=== PATIENT | male | born 1970 | race Caucasian/White ===

== ENCOUNTER 2020-07-22 02:35 | Outpatient (CLI) | payer OTHER, SELFPAY ==
[2020-07-22 18:24] LABS: SARS-CoV-2 RNA PCR Negative
== END 2020-07-22 02:36 | disposition home or self-care (01) ==
LOC: ANHCOVIDDT 02:35
PROVIDERS: PCP Internal Medicine; Visit Provider Internal Medicine Gastroenterology
DX: Z01.812 Encounter for preprocedural laboratory examination (principal); Z20.828 Contact with and (suspected) exposure to other viral communicable diseases
CPT/HCPCS: 87635; C9803; U0003

== ENCOUNTER 2020-07-24 00:39 | Day surgery (SDC) | payer OTHER, SELFPAY ==
[2020-07-16 14:12] VITALS: BMI 39.0
--- NOTE | 2020-07-23 14:15 | WPDANESEPP ---
Anes - Eval Pre Procedure Procedure: Operation Date: 07/24/20 07:30 Proposed Procedures p Screening Colonoscopy - Bandar Cassidy MD Date/Time: 07/23/20 14:15 Pre Op Diagnosis: Neoplasm Screening Patient Data Age: 49 Gender: M Height: 1.8 m Weight: 127 kg Allergies Allergy/AdvReac Type Severity Reaction Status Date / Time niacin AdvReac Intermediate Itching Verified 07/16/20 14:09 Home Medications Medication Instructions Recorded Confirmed Type aspirin 81 mg tablet,delayed 81 mg PO DAILY 11/08/19 07/16/20 History release calcium carbonat and lactate 200 2 tablet PO DAILY 11/08/19 07/16/20 History mg calcium-vitamin D3 250 unit tablet omega-3 fatty acids 1,000 mg 4,000 mg PO BID 11/08/19 07/16/20 History capsule rosuvastatin 20 mg tablet 20 mg PO DAILY 11/08/19 07/16/20 History empagliflozin 10 mg-metformin ER 1 tablet PO DAILY #90 each 03/09/20 07/16/20 Rx 1,000 mg tablet,extended release 24hr cetirizine [Zyrtec] 10 mg PO DAILY 07/16/20 07/16/20 History Patient hx anesthesia problems: none Family hx anesthesia problems: none PMFSH Past Medical History Medical History Adverse reaction to niacin Benign essential hypertension Body mass index (BMI) 40.0-44.9, adult Encounter for routine adult health examination without abnormal findings Encounter for special screening examination for neoplasm of prostate Hyperlipidemia On nursing home drug therapy LARRY on CPAP Pre-diabetes Vitamin D deficiency Family History Family History (Updated 05/30/19 @ 17:34 by DOCTOR UNKNOWN) Other Colon polyp Hypertension Social History Social History Smoking status: Never smoker Alcohol intake: current Gender identity (if verbalized by the patient): Male Spiritual care concerns: No Exam Day of Procedure 07/23/20 14:15
[2020-07-24 06:27] VITALS: BP 142/87; PULSE 98; RESP 18; TEMP 36.6; O2SAT 100
[2020-07-24] MEDS: LACTATED RINGERS 1,000 ML 150 ML IV CONT (06:43)
[2020-07-24 06:44] LABS: Glucose Point of Care 122 (65-105)
--- NOTE | 2020-07-24 07:15 | WPDANESEPPF ---
Anes - Initial Pre Proc Eval Procedure: Operation Date: 07/24/20 07:30 Proposed Procedures p Screening Colonoscopy - Bandar Cassidy MD Date/Time: 07/24/20 07:15 Surgeon: Bandar Cassidy MD Pre Op Diagnosis: Neoplasm Screening Patient Data Age: 49 Gender: M Height: 5 ft 11 in Weight: 127 kg Last Vital Signs Temp 97.9 F 07/24/20 06:27 Pulse 98 07/24/20 06:27 Resp 18 07/24/20 06:27 BP 142/87 H 07/24/20 06:27 Pulse Ox 100 07/24/20 06:27 Allergies Allergy/AdvReac Type Severity Reaction Status Date / Time niacin AdvReac Intermediate Itching Verified 07/24/20 06:24 Home Medications Medication Instructions Recorded Confirmed Type aspirin 81 mg tablet,delayed 81 mg PO DAILY 11/08/19 07/24/20 History release calcium carbonat and lactate 200 2 tablet PO DAILY 11/08/19 07/24/20 History mg calcium-vitamin D3 250 unit tablet omega-3 fatty acids 1,000 mg 4,000 mg PO BID 11/08/19 07/24/20 History capsule rosuvastatin 20 mg tablet 20 mg PO DAILY 11/08/19 07/24/20 History empagliflozin 10 mg-metformin ER 1 tablet PO DAILY #90 each 03/09/20 07/24/20 Rx 1,000 mg tablet,extended release 24hr cetirizine [Zyrtec] 10 mg PO DAILY 07/16/20 07/24/20 History Laboratory Tests 07/24/20 06:40 POC Capillary Glucose 122 mg/dl H mg/dl (65-105) Patient hx anesthesia problems: none Family hx anesthesia problems: none PMFSH Past Medical History Medical History Adverse reaction to niacin Benign essential hypertension Body mass index (BMI) 40.0-44.9, adult Encounter for routine adult health examination without abnormal findings Encounter for special screening examination for neoplasm of prostate Hyperlipidemia 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 LARRY on CPAP Pre-diabetes Vitamin D deficiency Family History Family History (Updated 05/30/19 @ 17:34 by DOCTOR UNKNOWN) Other Colon polyp Hypertension Social History Social History (Reviewed 03/09/20 @ 07:38 by Aileen Coffman [facility]) Smoking status: Never smoker Alcohol intake: current Alcohol use details: socially, 12 drinks per year Living arrangements: with family Gender identity (if verbalized by the patient): Male Spiritual care concerns: No Anes - Eval Final PreProcedure Day of Procedure 07/24/20 07:15 Patient weight: morbidly obese Heart: regular rate and rhythm Lungs: clear to auscultation Airway: Mallampati scale class II Neurological: alert and oriented Last oral intake: >/= 8 hours ASA classification: III Emergent: no Anesthetic plan: proceed Anesthesia type and monitoring: general GIVS and standard monitoring Informed Consent: The patient's anesthetic plan and its attendant risks and benefits were discussed with the patient/family/POA. Questions were solicited and answers provided to the satisfaction of the patient/family/POA.
--- NOTE | 2020-07-24 07:34 | P.CONGI_ITS ---
Assessment and Plan Assessment and plan (1) Family history of colonic polyps: Code(s): Z83.71 - Family history of colonic polyps Status: Acute Assessment and Plan: patient presents for screening colonoscopy because of his age and also because of family history of colon polyps in his father. Colonoscopy report follow separately. GI Consult Note Consult date/time: 07/24/20 07:34 HPI: Umesh Kulkarni is a 49 year old male seen in evaluation at the request of Dr Panda Castro.Patient presents for neoplasia screening colonoscopy. Patient's current weight appetite bowel movements are normal. He denies abdominal pain. He has had no discomfort. His bowel habits are regular. His weight is stable. In the past he has had a small amount of bright red blood per rectum attributed to hemorrhoids. 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 LARRY on CPAP Pre-diabetes Vitamin D deficiency Family History Family History (Updated 05/30/19 @ 17:34 by DOCTOR UNKNOWN) Other Colon polyp Hypertension Social History Social History Smoking status: Never smoker Alcohol intake: current Alcohol use details: socially, 12 drinks per year Living arrangements: with family Gender identity (if verbalized by the patient): Male Spiritual care concerns: No Meds Home Medications and Allergies Home Medications Medication Instructions Recorded Confirmed Type aspirin 81 mg tablet,delayed 81 mg PO DAILY 11/08/19 07/24/20 History release calcium carbonat and lactate 200 2 tablet PO DAILY 11/08/19 07/24/20 History mg calcium-vitamin D3 250 unit tablet omega-3 fatty acids 1,000 mg 4,000 mg PO BID 11/08/19 07/24/20 History capsule rosuvastatin 20 mg tablet 20 mg PO DAILY 11/08/19 07/24/20 History empagliflozin 10 mg-metformin ER 1 tablet PO DAILY #90 each 03/09/20 07/24/20 Rx 1,000 mg tablet,extended release 24hr cetirizine [Zyrtec] 10 mg PO DAILY 07/16/20 07/24/20 History Allergies Allergy/AdvReac Type Severity Reaction Status Date / Time niacin AdvReac Intermediate Itching Verified 07/24/20 06:24 Vital Signs Vital Signs - 24 hr 07/24/20 06:27 Temperature 97.9 F Pulse Rate 98 Respiratory Rate 18 Blood Pressure 142/87 H Pulse Oximetry 100 Exam Narrative: Exam Narrative: physical exam reveals patient to be alert. Vital signs stable. HEENT exam unremarkable. Lungs are clear to auscultation and percussion. Heart is without murmur or extra sounds. Abdominal exam bowel sounds are present soft nontender with no organomegaly. Digital external rectal exam normal.
[2020-07-24 07:58] VITALS: BP 129/79; PULSE 84; RESP 18; O2SAT 97
[2020-07-24 08:08] VITALS: BP 127/76; PULSE 79; RESP 18; O2SAT 98
[2020-07-24 08:18] VITALS: BP 135/77; PULSE 76; RESP 18; O2SAT 98
== END 2020-07-24 08:44 | disposition home or self-care (01) ==
PROVIDERS: PCP Internal Medicine; Visit Provider Internal Medicine Gastroenterology
PROC: 0DJD8ZZ Inspection of Lower Intestinal Tract, Via Natural or Artificial Opening Endoscopic (ICD-10-PCS; CPT 45378; principal; 2020-07-24 07:30)
DX: Z12.11 Encounter for screening for malignant neoplasm of colon (principal); D12.5 Benign neoplasm of sigmoid colon; K63.5 Polyp of colon; K57.30 Diverticulosis of large intestine without perforation or abscess without bleeding; Z83.71 Family history of colonic polyps; I10 Essential (primary) hypertension; E78.5 Hyperlipidemia, unspecified; R73.03 Prediabetes; G47.33 Obstructive sleep apnea (adult) (pediatric); E55.9 Vitamin D deficiency, unspecified; E66.9 Obesity, unspecified; Z68.39 Body mass index [BMI] 39.0-39.9, adult
CPT/HCPCS: 45385; 88305; J2704; J7120

== ENCOUNTER 2020-07-27 22:02 | Observation (INO) | payer OTHER, SELFPAY ==
[2020-07-27 22:08] VITALS: BP 127/70; PULSE 84; RESP 19; TEMP 36.6; O2SAT 100
[2020-07-27 22:12] VITALS: PULSE 84
--- NOTE | 2020-07-27 22:39 | ED.SYNCOPE ---
HPI - Syncope General Chief Complaint: Syncope Stated Complaint: BLOODY STOOLS, SYNCOPE Time Seen by Provider: 07/27/20 22:04 History of Present Illness HPI narrative: Patient is a 49-year-old male who presents the ER status post syncope. Patient had a colonoscopy 3 days ago. He had several polyps removed by Dr. Cassidy. Patient had not had a bowel movement all weekend. Today he started having bloody bowel movements several bright red. He spoke with Dr. Cassidy who said to keep an eye on it. Patient is on no blood thinners outside of the baby aspirin which she did not take today. Patient had 6 bloody stools today. The last when he felt hot and flushed and he lost consciousness. No chest pain or shortness of breath. Had not been having positional dizziness. Related Data Home Medications Medication Instructions Recorded Confirmed aspirin 81 mg tablet,delayed 81 mg PO DAILY 11/08/19 07/28/20 release calcium carbonat and lactate 200 2 tablet PO DAILY 11/08/19 07/28/20 mg calcium-vitamin D3 250 unit tablet omega-3 fatty acids 1,000 mg 4,000 mg PO BID 11/08/19 07/28/20 capsule rosuvastatin 20 mg tablet 20 mg PO DAILY 11/08/19 07/28/20 cetirizine [Zyrtec] 10 mg PO DAILY 07/16/20 07/28/20 Allergies Allergy/AdvReac Type Severity Reaction Status Date / Time niacin AdvReac Intermediate Itching Verified 07/24/20 06:24 Review of Systems Review of Systems: All systems reviewed & are unremarkable except as noted in HPI and below Constitutional: Constitutional: Denies chills, Denies fever(s) and Denies weakness ENT: Denies nasal congestion and Denies sore throat Cardiovascular: Cardiovascular: Denies chest pain and Denies radiating jaw, neck or arm pain Gastrointestinal: Gastrointestinal: Denies abdominal pain, Denies nausea and Denies vomiting Comments: Hematochezia Neurologic: Reports syncope, Denies focal weakness and Denies numbness PMFSH Past Medical History Medical History (Updated 07/28/20 @ 06:46 by Mario Lam MD) Adverse reaction to niacin Benign essential hypertension Body mass index (BMI) 40.0-44.9, adult Encounter for routine adult health examination without abnormal findings Encounter for special screening examination for neoplasm of prostate Hyperlipidemia On senior living drug therapy LARRY on CPAP Pre-diabetes Vitamin D deficiency Surgical History Surgical History (Updated 07/27/20 @ 22:41 by Mario Lam MD) History of colonoscopy Family History Family History (Updated 07/28/20 @ 02:35 by Michelle Fuentes RN) Father Hypertension Father Colon polyp Father Acute myocardial infarction Social History Social History Smoking status: Never smoker Alcohol intake: current Drinks per week: 1 Substance use: never Substance use type: does not use Gender identity (if verbalized by the patient): Male Sexual Orientation (if Verbalized by the Patient): Straight or Heterosexual Spiritual care concerns: No Exam Narrative: Exam Narrative: GENERAL: Well-appearing, well-nourished, and in no acute distress. HEAD: Normocephalic, atraumatic. CHEST: Clear to auscultation. No respiratory distress. HEART: Regular rate and rhythm. Normal peripheral pulses. ABDOMEN: Soft, nontender, nondistended, gross blood on rectal exam. EXTREMITIES: Normal range of motion. No edema. SKIN: Warm, dry, no rash. NEURO: Alert and oriented x3. PSYCH: Normal mood and affect. Course Course Emergency Course: Admit to hospitalist service. GI consulted. Every 6 hours H&H's. We will continue to hydrate. Clear liquid fluids recommended early in case patient needs additional procedure. Vital Signs Vital signs: Vital Signs Temperature 97.9 F 07/27/20 22:08 Pulse Rate 84 07/27/20 22:08 Respiratory Rate 19 07/27/20 22:08 Blood Pressure 127/70 07/27/20 22:08 Pulse Oximetry 100 07/27/20 22:08 Temperature 97.1
[2020-07-27 22:41] LABS: Basophils Absolute Auto 0.1 K/mm3 (0.0-0.1); Basophils Percent Auto 0.6 % (0.2-1.2); Eosinophils Percent Auto 0.5 % (0-4.4); Hematocrit 33.7 % (42.0-52.0); Hemoglobin 11.2 g/dL (14.0-18.0); Immature Granulocyte Absolute 0.03 K/mm3 (0.00-0.031); Immature Granulocyte Percent A 0.4 % (0-0.5); Lymphocytes Absolute Auto 2.69 K/mm3 (0.9-3.2); Lymphocytes Percent Auto 31.8 % (18.3-44.2); Mean Corpuscular HGB Conc 33.2 g/dl (32-36); Mean Corpuscular Hemoglobin 29.9 pg (26-34); Mean Corpuscular Volume 89.9 fl (80-100); Mean Platelet Volume 10.6 fl (7.4-10.4); Monocytes Absolute Auto 0.5 K/mm3 (0.1-0.6); Neutrophils Absolute Auto 5.2 K/mm3 (1.3-6.7); Neutrophils Percent Auto 60.7 % (45.5-73.1); Platelet Count Result 234 k/mm3 (150-375); Red Blood Count 3.75 M/mm3 (4.6-6.20); Red Cell Distribution Width 12.7 % (11.5-14.5); White Blood Count 8.5 K/mm3 (4.5-10.0)
[2020-07-27 22:46] LABS: INR 1.1; Prothrombin Time 13.5 Seconds (11.1-14.7)
[2020-07-27 22:47] LABS: Partial Thromboplastin Time 21.9 SECONDS (22.3-36.8)
[2020-07-27] MEDS: SODIUM CHLORIDE 0.9% IV 1,000 ML 999 ML IV CONT (22:47)
[2020-07-27 22:49] LABS: Anion Gap 8 mmol/L (8-16); Blood Urea Nitrogen 22 mg/dL (9-20); Calcium 8.6 mg/dL (8.4-10.2); Carbon Dioxide 29 mmol/L (22-30); Chloride 102 mmol/L (98-107); Estimated CRCL calculation 93 ml/min; Estimated Glomerular Filt Rate > 60; Glucose 211 mg/dL (75-110); Potassium 3.8 mmol/L (3.4-5.0); Sodium 139 mmol/L (137-145)
[2020-07-27 22:55] VITALS: O2SAT 99
[2020-07-27 23:28] VITALS: BP 106/56; PULSE 90; RESP 19; O2SAT 99
[2020-07-28] VITALS (17 sets, daily range): BP systolic 100–143; BP diastolic 45–98; PULSE 66–92; RESP 16–22; TEMP 36.2–36.7; O2SAT 96–100; BMI 30.4
--- NOTE | 2020-07-28 | ECHO_ITS ---
Patient Info Name: Umesh Kulkarni Age: 49 years : 1970 Gender: Male Ht: 71 in Wt: 218 lbs BSA: 2.25 m2 HR: 68 bpm BP: 110 / 49 mmHg Heart Rhythm: Sinus Rhythm Technical Quality: Good Exam Date: 07/28/2020 1:46 PM Exam Location: [facility] Patient Status: Outpatient Admit Date: 07/28/2020 Staff Ordering Physician: Melani Hansen PA-C Phys Therapist: Manpreet Rowley, LUCY, RT Attending Provider: Melani Hansen PA-C Exam Type: CA echo dop color flow w con Study Info Complete two-dimensional, color flow and Doppler transthoracic echocardiogram is performed. Summary 1. Complete two-dimensional, color flow and Doppler transthoracic echocardiogram is performed. 2. Left ventricular chamber size, , systolic and diastolic function are normal with no regional wall motion abnormalities with an estimated ejection fraction of 60-65%. Borderline concentric LVH. 3. Left atrial chamber dimension is mildly enlarged. 4. No significant valve disease. 5. Somewhat tele difficult study, definity echo contrast used. 6. Normal sinus rhythm. Left Ventricle Left ventricular chamber dimension is normal. Left ventricular systolic function is normal, estimated at 60-65%. There is no increased left ventricular wall thickness. Left ventricular septal wall motion is normal. The left ventricular diastolic function is normal. Left ventricular chamber size, , systolic and diastolic function are normal with no regional wall motion abnormalities with an estimated ejection fraction of 60-65%. Borderline concentric LVH. Right Ventricle Right ventricular chamber dimension is normal. Right ventricular systolic function is normal. Left Atria Left atrial chamber dimension is mildly enlarged. Right Atria Right atrial chamber dimension is normal. Aortic Valve The aortic valve is trileaflet. There is no aortic valve sclerosis. There is no aortic valve stenosis. There is no aortic valve regurgitation. Pulmonic Valve The pulmonic valve is normal. There is no pulmonic valve stenosis. There is no pulmonic regurgitation. Mitral Valve The mitral valve has normal leaflets. There is no mitral valve stenosis. There is trace mitral valve regurgitation. Tricuspid Valve The tricuspid valve leaflets are normal. There is no significant tricuspid valve stenosis. There is trace tricuspid valve regurgitation. No pulmonary hypertension, estimated pulmonary arterial systolic pressure is Empty. Pericardium/Pleural The pericardium appears normal. There is no pericardial effusion. Inferior Vena Cava Normal inferior vena cava with >50% collapse upon inspiration consistent with Empty right atrial pressure, Empty. Aorta The aortic root size at the sinus of Valsalva is normal. The prox ascending aorta size is normal. Ventricles Name Value Normal LV Fractional Shortening/Ejection Fraction 2D/MM LV EF (BP MOD) 52 % 52-72 Report Signatures
--- NOTE | 2020-07-28 02:33 | ADMGEN ---
This patient, Umesh Kulkarni, was admitted to Medical Room 257-. Patient/family oriented to hospital policies and general routines including ID bracelet, bed and alarms, visiting hours, pain management, procedures, bathroom and other care routines, personal items, smoking policy, room service/diet, and visiting hours. Valuables list has been completed. Information on how to activate the Rapid Response Team has been discussed. Patient/Family are encouraged to report perceived risks to care and to ask questions if they do not understand what they are told or what they should do.
[2020-07-28] MEDS: SODIUM CHLORIDE 0.9% IV 1,000 ML 125 ML IV CONT (03:11)
[2020-07-28 05:54] LABS: Hematocrit 29.4 % (42.0-52.0); Hemoglobin 9.8 g/dL (14.0-18.0)
--- NOTE | 2020-07-28 07:01 | WPDGICN ---
Assessment and Plan Assessment and plan (1) Acute GI bleeding: Code(s): K92.2 - Gastrointestinal hemorrhage, unspecified Status: Acute Assessment and Plan: Patient has had acute GI bleeding appears to be post polypectomy bleeding. Having had colonoscopy with colon polyp removal 3-4 days prior to this presentation. Patient admitted with syncopal event. Attributed to the bleeding. Plan is to continue monitor hemoglobin transfuse if necessary. Colonoscopy to assess for risk of continued bleeding hopefully cauterize the site will be planned. (2) History of colon polyps: Code(s): Z86.010 - Personal history of colonic polyps Status: Acute Assessment and Plan: Adenomatous colon polyps identified time endoscopy. Histology benign. Plan is for for ultimate follow-up colonoscopy in 3 years because of size polyp. He also has a family history of colon polyps in his father. (3) Family history of colonic polyps: Code(s): Z83.71 - Family history of colonic polyps Status: Acute GI Consult Note Consult date/time: 07/28/20 07:01 HPI: Umesh Kulkarni is a 49 year old male I am asked to see because of GI bleeding. Patient underwent screening colonoscopy on Monday 4 days ago for screening. Previously it had intermittent rectal bleeding attributed to hemorrhoids. Family history significant his father had colon polyps. At the time of colonoscopy patient had several large colon polyp subsequently identified to be tubular 0 adenomatous colon polyps. Benign histology was confirmed. They were rather large. Yesterday morning began to pass bloody stools. This persisted throughout the day intermittently. Associated with lower abdominal bloating and cramping. Last evening he experienced a syncopal episode. He presented to the emergency room. Hemoglobin was noted did decline to 9.8 by this morning. Patient states bowel movements occurred approximately 4-6 hour intervals. Stools are somewhat darkish in description. Family history is significant patient's father has had colon polyps. [facility] Past Medical History Medical History (Updated 07/28/20 @ 07:04 by Bandar Cassidy MD) Adverse reaction to niacin Benign essential hypertension Body mass index (BMI) 40.0-44.9, adult Encounter for routine adult health examination without abnormal findings Encounter for special screening examination for neoplasm of prostate Hyperlipidemia On shelter drug therapy LARRY on CPAP Pre-diabetes Vitamin D deficiency Surgical History Surgical History (Updated 07/27/20 @ 22:41 by Mario Lam MD) History of colonoscopy Family History Family History (Updated 07/28/20 @ 02:35 by Michelle Fuentes RN) Father Hypertension Father Colon polyp Father Acute myocardial infarction Social History Social History Smoking status: Never smoker Alcohol intake: current Drinks per week: 1 Substance use: never Substance use type: does not use Gender identity (if verbalized by the patient): Male Sexual Orientation (if Verbalized by the Patient): Straight or Heterosexual Spiritual care concerns: No Meds Home Medications and Allergies Home Medications Medication Instructions Recorded Confirmed Type aspirin 81 mg tablet,delayed 81 mg PO DAILY 11/08/19 07/28/20 History release calcium carbonat and lactate 200 2 tablet PO DAILY 11/08/19 07/28/20 History mg calcium-vitamin D3 250 unit tablet omega-3 fatty acids 1,000 mg 4,000 mg PO BID 11/08/19 07/28/20 History capsule rosuvastatin 20 mg tablet 20 mg PO DAILY 11/08/19 07/28/20 History empagliflozin 10 mg-metformin ER 1 tablet PO DAILY #90 each 03/09/20 07/28/20 Rx 1,000 mg tablet,extended release 24hr cetirizine [Zyrtec] 10 mg PO DAILY 07/16/20 07/28/20 History Allergies Allergy/AdvReac Type Severity Reaction Status Date / Time niacin AdvReac Intermediate I
[2020-07-28] MEDS: PEG (High)/E-LYTE SOLN 4,000 ML BTL 3000 ML PO (07:54)
[2020-07-28 08:07] LABS: Glucose Point of Care 116 (65-105)
--- NOTE | 2020-07-28 09:35 | PM.IMHP ---
H&P: HPI History of Present Illness Date/Time: 07/28/20 09:35 Chief complaint: gi bleeding Narrative: Umesh Kulkarni is a 49 year old male with PMH significant for hyperlipidemia and pre-diabetes who presented to the emergency department for the evaluation of GI bleeding and syncopal episode. He had an elective, outpatient screening colonoscopy Monday07/24/[address] Cassidy. Prior to the colonoscopy, he reported infrequent bright red blood per rectum with straining which was attributed to hemorrhoids. Several polyps were removed during the colonoscopy. He did not have any bowel movements over the weekend. Yesterday, he had 7-8 large volume, bloody bowel movements which were burgundy in color. Bowel movements were associated with boating and cramping. Yesterday evening, he reports that he became very flushed and felt hot. He sat at the edge of the bed with the fan on to try to cool off. He then became very nauseous and felt he was going to vomit. He subsequently developed the urge to defecate and went to sit on the toilet. The next thing he remembered was waking up on the floor. His reported that he had a brief loss of consciousness for 2-3 seconds. He did not hit his head. He reports that he has a very small scrape on his upper lip but no other injuries. He denies associated chest pain, dyspnea, and palpitations. He denies lateralizing weakness, speech change, and vision change. He denies prior episodes of syncope. He denies dizziness and lightheadedness. He reports one bowel movement today which was formed with dark blood. He has no other concerns at this time. Initial workup in the emergency department was notable for hemoglobin of 11.2 and hematocrit 33.7. Glucose was 211. Review of Systems Review of Systems: Narrative: Constitutional: Denies fever, chills, fatigue, and appetite change. Eyes: Denies vision change. No additional eye complaints. ENT: Denies change in hearing, nasal congestion, dysphagia, odynophagia, and sore throat. Cardiovascular: Denies palpitations and chest pain. Denies PND and orthopnea. Respiratory: Denies cough and shortness of breath. Gastrointestinal: As above. He denies nausea, vomiting, and hematemesis. He reports associated abdominal cramping with bowel movements but no other abdominal pain. Genitourinary: Denies dysuria, frequency, urgency, and hesitancy. Musculoskeletal: Denies joint pain and swelling. Denies muscle cramps and weakness. Skin: Denies lesions and wounds. Neurologic: Denies focal weakness, paresthesias, confusion, headaches, and speech change. Hematologic: +GI bleeding but no prior hx of significant bleeding or bruising. 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 Kulkarni lives at home with his . He has two daughters. He is employed in the [employer] for [employer]. He reports infrequent social alcohol use and denies tobacco and illicit substance use. He wishes to be a full code and he has designated his , Ashely Kulkarni, as his surrogate decision maker. Smoking status: Never smoker Alcohol intake: cu
[2020-07-28 09:41] LABS: Hematocrit 29.9 % (42.0-52.0); Hemoglobin 10.1 g/dL (14.0-18.0)
--- NOTE | 2020-07-28 11:00 | PC.NURSE ---
To GI lab via wheelchair with GI lab staff. Report given to Sabrina GONG. Consent on front of chart.
[2020-07-28] MEDS: LACTATED RINGERS 1,000 ML 150 ML IV CONT (11:07)
[2020-07-28 11:11] LABS: Glucose Point of Care 118 (65-105)
--- NOTE | 2020-07-28 11:32 | WPDANESEPPF ---
Anes - Initial Pre Proc Eval Procedure: Operation Date: 07/28/20 11:30 Proposed Procedures p Colonoscopy - Bandar Cassidy MD Date/Time: 07/28/20 11:32 Surgeon: Melani Hansen PA-C Pre Op Diagnosis: gi bleeding Patient Data Age: 49 Gender: M Height: 5 ft 11 in Weight: 98.9 kg Last Vital Signs Temp 98.1 F 07/28/20 11:14 Pulse 91 07/28/20 11:14 Resp 18 07/28/20 11:14 BP 126/98 H 07/28/20 11:14 Pulse Ox 100 07/28/20 11:14 Allergies Allergy/AdvReac Type Severity Reaction Status Date / Time niacin AdvReac Intermediate Itching Verified 07/24/20 06:24 Home Medications Medication Instructions Recorded Confirmed Type aspirin 81 mg tablet,delayed 81 mg PO DAILY 11/08/19 07/28/20 History release calcium carbonat and lactate 200 2 tablet PO DAILY 11/08/19 07/28/20 History mg calcium-vitamin D3 250 unit tablet omega-3 fatty acids 1,000 mg 4,000 mg PO BID 11/08/19 07/28/20 History capsule rosuvastatin 20 mg tablet 20 mg PO DAILY 11/08/19 07/28/20 History empagliflozin 10 mg-metformin ER 1 tablet PO DAILY #90 each 03/09/20 07/28/20 Rx 1,000 mg tablet,extended release 24hr cetirizine [Zyrtec] 10 mg PO DAILY 07/16/20 07/28/20 History Laboratory Tests 07/27/20 07/27/20 07/27/20 22:31 22:31 22:31 WBC 8.5 K/mm3 K/mm3 (4.5-10.0) RBC 3.75 M/mm3 L M/mm3 (4.6-6.20) Hgb 11.2 g/dL L g/dL (14.0-18.0) Hct 33.7 % L % (42.0-52.0) MCV 89.9 fl fl (80-100) MCH 29.9 pg pg (26-34) MCHC 33.2 g/dl g/dl (32-36) RDW 12.7 % % (11.5-14.5) Plt Count 234 k/mm3 k/mm3 (150-375) MPV 10.6 fl H fl (7.4-10.4) Immature Gran % (Auto) 0.4 % % (0-0.5) Neut % (Auto) 60.7 % % (45.5-73.1) Lymph % (Auto) 31.8 % % (18.3-44.2) [place] % (Auto) 6.0 % % (2.6-8.5) Eos % (Auto) 0.5 % % (0-4.4) Baso % (Auto) 0.6 % % (0.2-1.2) Lymph # (Auto) 2.69 K/mm3 K/mm3 (0.9-3.2) [place] # (Auto) 0.5 K/mm3 K/mm3 (0.1-0.6) Eos # (Auto) 0.0 K/mm3 K/mm3 (0-0.3) Baso # (Auto) 0.1 K/mm3 K/mm3 (0.0-0.1) Abs Immat Gran (auto) 0.03 K/mm3 K/mm3 (0.00-0.031) Absolute Neuts (auto) 5.2 K/mm3 K/mm3 (1.3-6.7) Absolute Nucleated RBC 0.0 K/mm3 K/mm3 (0.0-0.012) Nucleated RBC % 0.0 % % (0.0-0.2) PT 13.5 Seconds Seconds (11.1-14.7) INR 1.1 APTT 21.9 SECONDS L SECONDS (22.3-36.8) Sodium 139 mmol/L mmol/L (137-145) Potassium 3.8 mmol/L mmol/L (3.4-5.0) Chloride 102 mmol/L mmol/L (98-107) Carbon Dioxide 29 mmol/L mmol/L (22-30) Anion Gap 8 mmol/L mmol/L (8-16) BUN 22 mg/dL H mg/dL (9-20) Creatinine 1.00 mg/dL mg/dL (0.7-1.3) Estim Creat Clear Calc 93 ml/min ml/min Estimated GFR > 60 (59 - ) Glucose 211 mg/dL H mg/dL (75-110) POC Capillary Glucose Calcium 8.6 mg/dL mg/dL (8.4-10.2) Blood Type Antibody Screen 07/27/20 07/28/20 07/28/20 22:31 05:14 08:05 WBC RBC Hgb 9.8 g/dL L g/dL (14.0-18.0) Hct 29.4 % L % (42.0-52.0) MCV MCH MCHC RDW Plt Count MPV Immature Gran % (Auto) Neut % (Auto) Lymph % (Auto) [place] % (Auto) Eos % (Auto) Baso % (Auto) Lymph # (Auto) [place] # (Auto) Eos # (Auto) Baso # (Auto) Abs Immat Gran (auto) Absolute Neuts (auto) Absolute Nucleated RBC Nucleated RBC % PT INR APTT Sodium Potassium Chl
[2020-07-28 12:07] LABS: Glucose Point of Care 117 (65-105)
[2020-07-28] MEDS: ROSUVASTATIN 10 MG TABLET 20 MG PO (13:02)
[2020-07-28 13:50] LABS: Glucose Point of Care 105 (65-105)
[2020-07-28] MEDS: PERFLUTREN LIPID MICROSPHERES 1.5 ML VIAL DILUTED TO 10 ML TOTAL VOLUME IV PUSH (15:25)
[2020-07-28 16:26] LABS: Glucose Point of Care 142 (65-105)
[2020-07-28 16:34] LABS: Hematocrit 26.2 % (42.0-52.0); Hemoglobin 8.8 g/dL (14.0-18.0)
[2020-07-28] MEDS: OMEGA 3 POLYUNSAT FATTY ACIDS 1 GM CAP 4 GM PO (17:47)
[2020-07-28 23:19] LABS: Glucose Point of Care 134 (65-105)
[2020-07-29] VITALS (7 sets, daily range): BP systolic 117–132; BP diastolic 61–67; PULSE 69–82; RESP 16–20; TEMP 36.5–37.1; O2SAT 98–100
[2020-07-29 00:18] LABS: Hematocrit 24.8 % (42.0-52.0); Hemoglobin 8.3 g/dL (14.0-18.0)
[2020-07-29 06:31] LABS: Hematocrit 24.6 % (42.0-52.0); Hemoglobin 8.3 g/dL (14.0-18.0)
[2020-07-29 08:04] LABS: Glucose Point of Care 133 (65-105)
--- NOTE | 2020-07-29 08:36 | WPDANESPN ---
Anes - Prog Note Post-Op Date/Time: 07/29/20 08:36 Cardiovascular status: normal Respiratory status: normal Airway patency: baseline Mental status: baseline Post-Op hydration status: normal Vital Signs: Last Vital Signs Temp 37.1 C 07/29/20 05:57 Pulse 72 07/29/20 05:57 Resp 18 07/29/20 05:57 BP 117/65 07/29/20 05:57 Pulse Ox 98 07/29/20 05:57 Pain Score (VAS): 0 I/O: Intake & Output 07/28/20 07/29/20 07/29/20 23:59 07:59 15:59 Intake Total 2240 0 Balance 2240 0 Laboratory Tests 07/29/20 06:22 07/27/20 22:31 07/28/20 07/28/20 07/28/20 09:26 11:09 12:05 Hgb 10.1 L Hct 29.9 L POC Capillary Glucose 118 H 117 H 07/28/20 07/28/20 07/28/20 13:00 16:20 16:27 Hgb 8.8 L Hct 26.2 L POC Capillary Glucose 105 142 H 07/28/20 07/29/20 07/29/20 22:05 00:14 06:22 Hgb 8.3 L 8.3 L Hct 24.8 L 24.6 L POC Capillary Glucose 134 H 07/29/20 08:01 Hgb Hct POC Capillary Glucose 133 H Post-procedural complaints: none Patient Feedback: Patient satisfied with anesthetic care.
[2020-07-29] MEDS: OMEGA 3 POLYUNSAT FATTY ACIDS 1 GM CAP 4 GM PO (08:43)
[2020-07-29] MEDS: ROSUVASTATIN 10 MG TABLET 20 MG PO (08:43)
--- NOTE | 2020-07-29 09:22 | WPDGIPROGNO ---
Progress Note: A&P Additional Plan Patient alert and comfortable this morning. Tolerating diet. No bleeding noted. No abdominal pain. Physical exam reveals patient be alert. Vital signs stable. Abdomen is soft nontender with no organomegaly. Labs reveal hemoglobin 8.3 matter crit 24.6 which is stable. Impression 1. Post polypectomy bleeding. Now status post endoscopy and clipping of polyp site. No additional bleeding noted. Plan is for early discharge with regular diet. 2. Adenomatous colon polyps. Benign histology but these were very large polyps. Plan is for follow-up colonoscopy in 3 years. Plan is for discharge today if other services agree . Subjective Date/time seen: 07/29/20 09:22 Objective Data Vital Signs Vital Signs: Vital Signs - 24 hr 07/28/20 10:00 07/28/20 11:14 07/28/20 11:53 Temperature 98.0 F 98.1 F Pulse Rate 88 91 88 Respiratory Rate 20 18 20 Blood Pressure 143/66 H 126/98 H 100/47 L Pulse Oximetry 99 100 99 07/28/20 12:00 07/28/20 12:03 07/28/20 12:13 Temperature Pulse Rate 66 75 Respiratory Rate 17 22 H Blood Pressure 112/47 L 110/49 L Pulse Oximetry 97 98 07/28/20 14:00 07/28/20 15:47 07/28/20 15:48 Temperature 97.4 F L Pulse Rate 74 Respiratory Rate 20 Blood Pressure 136/69 122/50 L 113/45 L Pulse Oximetry 99 07/28/20 16:00 07/28/20 20:00 07/29/20 00:00 Temperature 97.2 F L Pulse Rate 81 83 72 Respiratory Rate 16 Blood Pressure 141/68 H Pulse Oximetry 100 07/29/20 02:00 07/29/20 04:00 07/29/20 05:57 Temperature 97.7 F 98.7 F Pulse Rate 73 69 72 Respiratory Rate 16 18 Blood Pressure 132/67 117/65 Pulse Oximetry 100 98 07/29/20 08:00 Temperature Pulse Rate 82 Respiratory Rate Blood Pressure Pulse Oximetry Intake/Output Intake/Output: Intake & Output 07/26/20 07/27/20 07/28/20 07/29/20 23:59 23:59 23:59 23:59 Intake Total 1000 2930 0 Balance 1000 2930 0 Meds/Results Medications: Active Medications Generic Name Dose Route Start Last Admin Trade Name Raman PRN Reason Stop Dose Admin Calcium Carbonate 500 mg 07/28/20 09:00 07/29/20 08:43 Os-G[place] 500 +D Tablet PO 08/28/20 09:01 500 mg DAILY NIURKA Administration Dextrose 12.5 gm 07/28/20 07:40 Dextrose 50% Syringe IV PUSH PRN PRN Hypoglycemia Protocol Fish Oil 4 gm 07/28/20 17:00 07/29/20 08:43 Lovaza PO 4 gm BID NIURKA Administration Glucagon 1 mg 07/28/20 07:40 Glucagon For Inj IM PRN PRN Hypoglycemia Protocol Glucose 15 gm 07/28/20 07:40 Glutose 15 PO PRN PRN Hypoglycemia Protocol Dextrose 1,000 mls @ 100 mls/hr 07/28/20 07:40 Dextrose 5% 1,000 Ml IVPB PRN PRN Hypoglycemia Protocol Insulin Aspart 2 - 5 units 07/28/20 08:00 07/29/20 08:42 Novolog SUB-Q Not Given TIDWM NIURKA Protocol Morphine Sulfate 4 mg 07/28/20 00:10 Morphine Sulfate Inj (*Crx) IV PUSH Q2H PRN Pain Rated 7-10 Ondansetron HCl 4 mg 07/28/20 00:10 Zofran Inj IV PUSH Q4H PRN Nausea Rosuvastatin Calcium 20 mg 07/28/20 09:00 07/29/20 08:43 Crestor PO 20 mg DAILY NIURKA Administration Labs Labs: Laboratory Results - last 24 hr 07/28/20 07/28/20 07/28/20 09:26 11:09 12:05 Hgb 10.1 L Hct 29.9 L POC Capillary Glucose 118 H 117 H 07/28/20 07/28/20 07/28/20 13:00 16:20 16:27 Hgb 8.8 L Hct 26.2 L POC Capillary Glucose 105 142 H 07/28/20 07/29/20 07/29/20 22:05 00:14 06:22 Hgb 8.3 L 8.3 L Hct 24.8 L 24.6 L POC Capillary Glucose 134 H 07/29/20 08:01 Hgb Hct POC Capillary Glucose 133 H
--- NOTE | 2020-07-29 10:48 | PM.DS ---
DS: Admitting Diagnosis Admitting Diagnosis Admitting Diagnosis: gi bleeding DS: Discharge Diagnosis Discharge Diagnosis (1) Acute GI bleeding: Code(s): K92.2 - Gastrointestinal hemorrhage, unspecified Status: Acute Assessment and Plan: Discharge Summary (Date of service 07/29/20: Mr. Kulkarni is a 49 year old male with PMH significant for hyperlipidemia and pre-diabetes who presented to the emergency department for the evaluation of GI bleeding and syncopal episode. He had an elective, outpatient screening colonoscopy Monday07/24/[address] Cassidy. He reported 7-8 large volume, bloody bowel movements which were burgundy in color on 07/27. Later that evening, he developed flushing, nausea, and urge to defecate. He sat on the toilet for a bowel movement and reports that he briefly lost consciousness for 2-3 seconds per his . He had no focal deficits or head trauma. Initial workup in the emergency department was notable for hemoglobin of 11.2 and hematocrit 33.7. Glucose was 211. Dr. Cassidy was consulted and he was admitted to the hospitalist service for further management. He underwent colonoscopy 07/30/20 which demonstrated a colonic ulcer with bleeding stigmata in the proximal ascending colon with no active bleeding at the site of polypectomy. Clips were applied to prevent additional bleeding. Internal hemorrhoids, diverticulosis, and rectal ulcer were also present. Bleeding stopped and he had a regular, formed bowel movement the day of discharge without any evidence of melena or hematochezia. He will need repeat colonoscopy in 3 years. Hemoglobin and hematocrit were monitored closely and remained stable. He requested to go home as he felt much better. He was not having any lightheadedness or dizziness. Syncope was felt to be reflex mediated due to acute blood loss and vagal response. He was not orthostatic and echocardiogram was without significant abnormality including no valvular disorder. He was advised to have repeat CBC and follow-up with his primary care doctor. He was advised to avoid all NSAIDs and hold ASA until PCP follow-up. He verbalized understanding with the plan of care. He was discharged in hemodynamically stable condition on the morning of 07/29/20. (2) Acute blood loss anemia: Code(s): D62 - Acute posthemorrhagic anemia Status: Acute Assessment and Plan: Secondary to GI blood loss. Hemoglobin stabilized to 8.3 and hematocrit 24.6. He will need repeat CBC outpatient 07/31 and close follow-up with his PCP. (3) Syncopal episodes: Code(s): R55 - Syncope and collapse Status: Acute Assessment and Plan: Likely reflex syncope given classic prodrome in the setting of volume depletion from diarrhea and blood loss. He has no prior hx of syncope. Orthostatic BP was performed and did not demonstrate orthostatic hypotension. Echocardiogram was performed and demonstrated normal LV chamber size, systolic and diastolic function with no regional wall motion abnormalities and an estimated ejection fraction of 60-65%. Borderline concentric LVH. Mild left atrial atrial chamber enlargement. No significant valve disease. Telemetry was reviewed and demonstrated sinus rhythm without any evidence of arrhythmia. (4) Hyperlipidemia: Qualifiers: Hyperlipidemia type: mixed hyperlipidemia Qualified Code(s): E78.2 - Mixed hyperlipidemia Code(s): E78.5 - Hyperlipidemia, unspecified Status: Chronic Assessment and Plan: Continue rosuvastatin and omega-3 fatty acids. (5) Pre-diabetes: Code(s): R73.03 - Prediabetes Status: Chronic Assessment and Plan: Blood sugars were reviewed and reasonably controlled. Empagliflozin-metformin was held while inpatient and resumed at discharge. (6) Vitamin D deficiency: Code(s): E55.9 - Vitamin D deficiency, unspecified Status: Chronic Assessment and Plan: Calcium-vitamin D3 suppl
== END 2020-07-29 12:30 | disposition home or self-care (01) ==
LOC: ANHED 22:34 → ANH2MED 07-28 02:03
PROVIDERS: Internal Medicine Gastroenterology; Physician Assistant; Admitting Provider Internal Medicine; Emergency Provider Emergency Medicine; PCP Internal Medicine; Visit Provider Family Medicine
PROC: 0DJD8ZZ Inspection of Lower Intestinal Tract, Via Natural or Artificial Opening Endoscopic (ICD-10-PCS; CPT 45378; principal; 2020-07-28 11:30)
DX: K92.2 Gastrointestinal hemorrhage, unspecified (principal); K91.840 Postprocedural hemorrhage of a digestive system organ or structure following a digestive system procedure; R55 Syncope and collapse; K63.3 Ulcer of intestine; K64.8 Other hemorrhoids; Z99.89 Dependence on other enabling machines and devices; D62 Acute posthemorrhagic anemia; E78.2 Mixed hyperlipidemia; E55.9 Vitamin D deficiency, unspecified; G47.33 Obstructive sleep apnea (adult) (pediatric); Z23 Encounter for immunization; R73.03 Prediabetes; Z79.899 Other long term (current) drug therapy; Z86.010 Personal history of colon polyps; Z83.71 Family history of colonic polyps
CPT/HCPCS: 45378; 36415; 80048; 85014; 85018; 85025; 85610; 85730; 86850; 86900; 86901; 90471; 90653; 96360; 96361; 96374; 99285; A9270; C8929; G0008; G0378; J2704; J7030; J7120; Q9957

== ENCOUNTER 2020-07-31 21:42 | Emergency (ER) | payer OTHER, SELFPAY ==
[2020-07-31 22:00] VITALS: BP 141/75; PULSE 123; RESP 22; TEMP 36.7; O2SAT 98
--- NOTE | 2020-07-31 22:12 | ED.WEAKNESS ---
HPI - Weakness General Chief complaint: Weakness Stated complaint: lethargic Time Seen by Provider: 07/31/20 22:12 History of Present Illness HPI Narrative: 49 yo male w/ h/o anemia presnets to the ED for weakness and fatigue. He reports that he had a colonoscopy last we. This was complicated by an injury to a blood vessel resulting in severe anemia. He had been feeling better, but over the past couple of days he has become very fatigued. HE reports light headedness on standing. Denies anymore dark or bloody stools. Related Data Home Medications Medication Instructions Recorded Confirmed aspirin 81 mg tablet,delayed 81 mg PO DAILY 11/08/19 07/31/20 release calcium carbonat and lactate 200 2 tablet PO DAILY 11/08/19 07/31/20 mg calcium-vitamin D3 250 unit tablet omega-3 fatty acids 1,000 mg 4,000 mg PO BID 11/08/19 07/31/20 capsule rosuvastatin 20 mg tablet 20 mg PO DAILY 11/08/19 07/31/20 cetirizine [Zyrtec] 10 mg PO DAILY 07/16/20 07/31/20 Allergies Allergy/AdvReac Type Severity Reaction Status Date / Time niacin AdvReac Intermediate Itching Verified 07/31/20 09:28 Review of Systems Review of Systems: All systems reviewed & are unremarkable except as noted in HPI and below Constitutional: Constitutional: Denies chills, Reports fatigue, Denies fever(s) and Reports weakness Eyes: Eyes: Denies change in vision ENT: Reports dizziness Cardiovascular: Cardiovascular: Denies chest pain Respiratory: Respiratory: Denies dyspnea Gastrointestinal: Gastrointestinal: Denies abdominal pain, Denies constipation, Denies diarrhea, Reports nausea and Denies vomiting Genitourinary: Genitourinary: Denies hematuria and Denies dysuria Musculoskeletal: Musculoskeletal: Denies back pain Neurologic: Denies vertigo, Reports dizziness, Denies syncope, Reports headache(s) and Denies focal weakness PMFSH Past Medical History Medical History Adverse reaction to niacin Back pain Benign essential hypertension BMI 38.0-38.9,adult Body mass index (BMI) 40.0-44.9, adult DM type 2 (diabetes mellitus, type 2) Encounter for routine adult health examination without abnormal findings Encounter for special screening examination for neoplasm of prostate Hyperlipidemia On intermediate manager drug therapy LARRY on CPAP Pre-diabetes Vitamin D deficiency Surgical History Surgical History History of colonoscopy Family History Family History Father Hypertension Father Colon polyp Father Acute myocardial infarction Mother Immunodeficiency Social History Social History Social History: Mr. Kulkarni lives at home with his . He has two daughters. He is employed in the [employer] for [employer]. He reports infrequent social alcohol use and denies tobacco and illicit substance use. He wishes to be a full code and he has designated his , Ashely Kulkarni, as his surrogate decision maker. Smoking status: Never smoker Alcohol intake: current Drinks per week: 1 Substance use: never Substance use type: does not use Gender identity (if verbalized by the patient): Male Spiritual care concerns: No Exam Const: General: no acute distress, alert and ill appearing Nutritional Appearance: well nourished Orientation/consciousness: patient oriented x3 HENMT: Mouth: Yes dry mucous membranes Resp: Effort & Inspection: normal respiratory effort Auscultation: clear to auscultation bilaterally Cardio: Rate: tachycardic Rhythm: regular rhythm GI: Inspection: non-distended GI Palp: Yes Soft to palpation and No Tenderness to palpation present (GI) Skin: General skin exam: normal color Neuro: General: patient oriented x3, moves all extremities and CN's II-XI intact bilaterally Spe
[2020-07-31 22:57] LABS: Basophils Percent Auto 0.2 % (0.2-1.2); Hematocrit 33.3 % (42.0-52.0); Hemoglobin 11.3 g/dL (14.0-18.0); Immature Granulocyte Absolute 0.05 K/mm3 (0.00-0.031); Immature Granulocyte Percent A 0.6 % (0-0.5); Lymphocytes Absolute Auto 0.73 K/mm3 (0.9-3.2); Lymphocytes Percent Auto 8.8 % (18.3-44.2); Mean Corpuscular HGB Conc 33.9 g/dl (32-36); Mean Corpuscular Volume 88.3 fl (80-100); Mean Platelet Volume 10.9 fl (7.4-10.4); Monocytes Absolute Auto 0.1 K/mm3 (0.1-0.6); Monocytes Percent Auto 1.3 % (2.6-8.5); Neutrophils Absolute Auto 7.4 K/mm3 (1.3-6.7); Neutrophils Percent Auto 89.1 % (45.5-73.1); Nucleated Red Blood Cells Perc 0.4 % (0.0-0.2); Platelet Count Result 341 k/mm3 (150-375); Red Blood Count 3.77 M/mm3 (4.6-6.20); Red Cell Distribution Width 13.3 % (11.5-14.5); White Blood Count 8.3 K/mm3 (4.5-10.0)
[2020-07-31] MEDS: SODIUM CHLORIDE 0.9% IV 1,000 ML 999 ML IV CONT ×2 (23:07→23:57)
[2020-07-31 23:09] LABS: Alanine Aminotransferase 31 U/L (4-50); Albumin Level 4.8 g/dL (3.5-5.1); Alkaline Phosphatase 66 U/L (38-126); Anion Gap 14 mmol/L (8-16); Aspartate Amino Transferase 32 U/L (17-59); Bilirubin,Total 0.5 mg/dL (0.2-1.3); Blood Urea Nitrogen 14 mg/dL (9-20); Calcium 9.5 mg/dL (8.4-10.2); Carbon Dioxide 23 mmol/L (22-30); Chloride 101 mmol/L (98-107); Estimated CRCL calculation 114 ml/min; Estimated Glomerular Filt Rate > 60; Glucose 242 mg/dL (75-110); Potassium 3.8 mmol/L (3.4-5.0); Sodium 138 mmol/L (137-145)
[2020-08-01 00:26] VITALS: BP 154/89; PULSE 87; RESP 19; O2SAT 99
[2020-08-01 00:59] VITALS: BP 148/89; PULSE 82; RESP 16; TEMP 36.9; O2SAT 100
== END 2020-08-01 00:59 | disposition home or self-care (01) ==
PROVIDERS: Emergency Provider Emergency Medicine; PCP Internal Medicine
DX: E86.0 Dehydration (principal); R55 Syncope and collapse; R73.9 Hyperglycemia, unspecified; I10 Essential (primary) hypertension; E78.5 Hyperlipidemia, unspecified; G47.33 Obstructive sleep apnea (adult) (pediatric); E55.9 Vitamin D deficiency, unspecified; Z79.82 Long term (current) use of aspirin
CPT/HCPCS: 36415; 80053; 85025; 96360; 96361; 99284; J7030

== ENCOUNTER 2020-12-02 11:47 | Outpatient (CLI) | payer OTHER, SELFPAY ==
--- NOTE | ~2020-12-02 | XR_ITS ---
EXAMINATION: XR chest 2V DATE: 12/02/2020 12:10 INDICATION: Other congenital malformations of the ribs TECHNIQUE: PA and lateral views of the chest are obtained. COMPARISON: 10/28/2016 FINDINGS: The lungs are free of acute opacities. There is no pleural effusion or pneumothorax. The ca rdiomediastinal silhouette is normal. The visualized bones and soft tissues are unremarkable. IMPRESSION: 1. No acute cardiopulmonary abnormality. Reviewed, dictated and finalized at location A. NTEER SERVICES MANAGER
== END 2020-12-02 11:48 | disposition home or self-care (01) ==
PROVIDERS: PCP Internal Medicine; Visit Provider Internal Medicine
DX: Q76.6 Other congenital malformations of ribs (principal)
CPT/HCPCS: 71046

== ENCOUNTER 2020-12-10 07:24 | Outpatient (CLI) | payer OTHER, SELFPAY ==
--- NOTE | ~2020-12-10 | US_ITS ---
EXAMINATION: US abdomen complete DATE: 12/10/2020 09:29 INDICATION: Epigastric abdominal pain TECHNIQUE: Multiple grayscale and Doppler ultrasound images of the abdomen were obtained. COMPARISON: None available FINDINGS: Bowel gas obscures visualization of the pancreas. The visualized portions of the pancreas a re unremarkable. The liver is normal with normal echogenicity and echotexture. No surface nodularity. Normal hepatopetal flow in the main portal vein. The gallbladder is normal with no abnormal wall thi ckening, pericholecystic fluid or stones. The normal common bile duct measures 4 mm. There was no son ographic Rowley sign. The visualized portions of the aorta and inferior vena cava are normal. The right kidney measures 10.4 x 6.0 x 5.9 cm. The left kidney measures 11.8 x 7.4 x 6.1 cm. The kidn eys demonstrate normal parenchymal echogenicity. There is no hydronephrosis. The spleen is normal in appearance and measures 9.7 cm. IMPRESSION: 1. No sonographic correlate for the patient's symptoms. Reviewed, dictated and finalized at location A. CTOR HYDROGEN STORAGE ENGINEERING
== END 2020-12-10 07:25 | disposition home or self-care (01) ==
LOC: ANHIMG 07:27
PROVIDERS: PCP Internal Medicine; Visit Provider Internal Medicine
DX: R19.8 Other specified symptoms and signs involving the digestive system and abdomen (principal)
CPT/HCPCS: 76700

== ENCOUNTER 2021-09-27 08:57 | Outpatient (CLI) | payer OTHER, SELFPAY ==
--- NOTE | ~2021-09-27 | XR_ITS ---
EXAMINATION:XR_[id number]_CR DATE: 09/27/2021 10:36 INDICATION: Neck pain TECHNIQUE: AP, lateral, lateral swimmers and odontoid views of the cervical spine are provided. COMPARISON: None FINDINGS: Alignment is normal. The odontoid is intact. No fracture is identified. Vertebral body heig hts and disk spaces are normal. Prevertebral soft tissues are normal. There is mild facet and uncover tebral joint osteoarthritis. IMPRESSION: 1. Mild cervical spondylosis without acute findings. Reviewed, dictated and finalized at location A. MOLDER
--- NOTE | ~2021-09-27 | XR_ITS ---
EXAMINATION: XR chest 2V DATE: 09/27/2021 10:36 INDICATION: Neck and shoulder pain TECHNIQUE: PA and lateral views of the chest are obtained. COMPARISON: 12/02/2020 FINDINGS: The lungs are free of acute opacities. There is no pleural effusion or pneumothorax. The ca rdiomediastinal silhouette is normal. There is mild thoracic spondylosis. IMPRESSION: 1. No acute cardiopulmonary abnormality. Reviewed, dictated and finalized at location A. BOARD COATING MACHINE OPERATOR
--- NOTE | ~2021-09-27 | XR_ITS ---
EXAMINATION: XR shoulder LT min 2V INDICATION: Left shoulder pain TECHNIQUE: Four views of the left shoulder are submitted. COMPARISON: None FINDINGS: Normal alignment. No fracture. There is mild osteoarthritis of the glenohumeral joint and m oderate osteoarthritis of the acromioclavicular joint. Soft tissues are unremarkable. IMPRESSION: 1. Osteoarthritis without acute osseous abnormality. Reviewed, dictated and finalized at location A. T CONTROL OPERATOR
[2021-09-27 09:41] LABS: Basophils Percent Auto 0.5 % (0.2-1.2); Eosinophils Absolute Auto 0.1 K/mm3 (0-0.3); Hematocrit 48.7 % (42.0-52.0); Hemoglobin 16.5 g/dL (14.0-18.0); Immature Granulocyte Absolute 0.02 K/mm3 (0.00-0.031); Immature Granulocyte Percent A 0.3 % (0-0.5); Lymphocytes Absolute Auto 1.94 K/mm3 (0.9-3.2); Mean Corpuscular HGB Conc 33.9 g/dl (32-36); Mean Corpuscular Hemoglobin 30.5 pg (26-34); Monocytes Absolute Auto 0.6 K/mm3 (0.1-0.6); Monocytes Percent Auto 7.9 % (2.6-8.5); Neutrophils Absolute Auto 5.1 K/mm3 (1.3-6.7); Neutrophils Percent Auto 65.3 % (45.5-73.1); Platelet Count Result 220 k/mm3 (150-375); Red Blood Count 5.41 M/mm3 (4.6-6.20); Red Cell Distribution Width 12.4 % (11.5-14.5); White Blood Count 7.8 K/mm3 (4.5-10.0)
[2021-09-27 09:47] LABS: Alanine Aminotransferase 24 U/L (4-50); Albumin Level 4.8 g/dL (3.5-5.1); Alkaline Phosphatase 70 U/L (38-126); Anion Gap 6 mmol/L (8-16); Aspartate Amino Transferase 27 U/L (17-59); Bilirubin,Total 0.4 mg/dL (0.2-1.3); Blood Urea Nitrogen 15 mg/dL (9-20); Calcium 9.1 mg/dL (8.4-10.2); Carbon Dioxide 30 mmol/L (22-30); Chloride 100 mmol/L (98-107); Creatine Kinase 101 U/L (55-170); Estimated Glomerular Filt Rate > 60; Glucose 123 mg/dL (65-110); Potassium 4.3 mmol/L (3.4-5.0); Sodium 136 mmol/L (137-145)
[2021-09-27 09:59] LABS: Troponin I 0.016 ng/mL (0.000-0.034)
== END 2021-09-27 08:58 | disposition home or self-care (01) ==
LOC: ANHLAB 09:02
PROVIDERS: PCP Internal Medicine; Visit Provider Internal Medicine
DX: R29.898 Other symptoms and signs involving the musculoskeletal system (principal); I10 Essential (primary) hypertension; M79.602 Pain in left arm; Z79.899 Other long term (current) drug therapy; M47.892 Other spondylosis, cervical region; M19.012 Primary osteoarthritis, left shoulder
CPT/HCPCS: 36415; 71046; 72040; 73030; 80053; 82550; 84484; 85025

== ENCOUNTER → 2023-01-02 09:41 | Outpatient (CLI) | payer OTHER, SELFPAY ==
--- NOTE | ~2023-01-02 | XR_ITS ---
EXAMINATION: XR cervical spine 4-5V DATE: 01/02/2023 10:08 INDICATION: Neck pain. TECHNIQUE: 4 views of cervical spine were obtained. COMPARISON: Cervical spine radiographs 09/27/2021 FINDINGS: Bone alignment is normal. Vertebral body heights and intervertebral disc heights are normal . There is multilevel mild uncovertebral joint osteoarthritis. The facet joints are normal. No centra l canal stenosis or prevertebral soft tissue swelling. IMPRESSION: 1. Multilevel mild uncovertebral joint osteoarthritis. Reviewed, dictated and finalized at location A.
== END ==
PROVIDERS: PCP Internal Medicine; Visit Provider Internal Medicine
DX: G44.52 New daily persistent headache (NDPH) (principal); M50.30 Other cervical disc degeneration, unspecified cervical region
CPT/HCPCS: 72050

== ENCOUNTER → 2023-01-11 08:07 | Outpatient (CLI) | payer OTHER, SELFPAY ==
--- NOTE | ~2023-01-11 | MR_ITS ---
MRI of the brain Clinical History: Headache Technique: Axial and sagittal T1-weighted images were acquired. These were followed by axial T2-weigh adwoa, diffusion weighted, gradient, and FLAIR images. Following intravenous administration of 20 cc Mu ltiHance gadolinium, T1-weighted fat-sat imaging was performed in the axial and coronal planes. Findings: There is no acute infarct, intracranial hemorrhage, or mass lesion. Minimal chronic white m atter changes noted in the periventricular white matter bilaterally. Ventricles and subarachnoid spaces are unremarkable. Orbits are unremarkable. Paranasal sinuses and m astoid air cells are clear. Major intracranial flow voids are intact. Sagittal midline structures are intact. No abnormal postcontrast enhancement identified. IMPRESSION: No acute infarct, intracranial hemorrhage, or mass lesion. Minimal chronic white matter changes. Reviewed, dictated and finalized at location .
== END ==
PROVIDERS: PCP Internal Medicine; Visit Provider Internal Medicine
DX: M54.2 Cervicalgia (principal); G44.52 New daily persistent headache (NDPH)
CPT/HCPCS: 70553; A9577

== ENCOUNTER 2023-12-21 12:57 | Outpatient (CLI) | payer OTHER, SELFPAY ==
--- NOTE | ~2023-12-21 | XR_ITS ---
EXAMINATION: XR chest 2V DATE: 12/21/2023 13:24 INDICATION: Chronic sinusitis TECHNIQUE: PA and lateral views of the chest were obtained. COMPARISON: Chest radiograph dated 09/27/2021 FINDINGS: The lungs remain clear with no focal airspace opacities, pulmonary edema, pleural effusion or pneumot horax. The cardiomediastinal silhouette is normal. Moderate spondylosis of the thoracolumbar junction with chronic mild anterior wedging of a lower thoracic vertebral body likely T11. IMPRESSION: 1. No acute cardiopulmonary disease. Reviewed, dictated and finalized at location L. TABLE INSPECTOR
--- NOTE | ~2023-12-21 | XR_ITS ---
EXAMINATION: XR sinus min 3V INDICATION: Chronic sinusitis TECHNIQUE: Four views of the paranasal sinuses are obtained. COMPARISON: None available FINDINGS: There is normal pneumatization of the paranasal sinuses. There is questionable mild opacifi cation of the left maxillary sinus. The nasal septum is midline. The facial bones are unremarkable. T here is mild cervical spondylosis. IMPRESSION: 1. Possible mild left maxillary sinus opacification. If there is high clinical suspicion for sinusiti s, consider CT of the sinuses. Reviewed, dictated and finalized at location F. RITY CONTROL ASSESSOR IMPRESSION: 1. Possible mild left maxillary sinus opacification. If there is high clinical suspicion for sinusitis, consider CT of the sinuses.
== END 2023-12-21 12:58 ==
PROVIDERS: PCP Internal Medicine; Visit Provider Internal Medicine
DX: J32.9 Chronic sinusitis, unspecified (principal)
CPT/HCPCS: 70220; 71046

== ENCOUNTER 2024-01-01 10:03 | Outpatient (CLI) | payer OTHER, SELFPAY ==
--- NOTE | ~2024-01-01 | CT_ITS ---
EXAMINATION: CT sinus wo con DATE: 01/01/2024 10:29 INDICATION: Chronic sinusitis. Headache. TECHNIQUE: Computed tomography (CT) of the paranasal sinuses was performed without intravenous contra st. Iterative reconstruction technique was employed. The dose-length product was 294.16 mGy-cm. COMPARISON: Brain MRI 01/11/2023 FINDINGS: There is mild mucosal thickening in the frontal, bilateral ethmoid, sphenoid, and bilateral maxillary sinuses. There is leftward deviation of the nasal septum with a left lateral spur. There a re bilateral Luz cells. The ostiomeatal units are patent. IMPRESSION: 1. Mild mucosal thickening in the paranasal sinuses. 2. Leftward deviation of the nasal septum. Reviewed, dictated and finalized at location A.
== END 2024-01-01 10:04 ==
LOC: MICIMG 10:04
PROVIDERS: PCP Internal Medicine; Visit Provider Internal Medicine
DX: J32.9 Chronic sinusitis, unspecified (principal); J34.2 Deviated nasal septum
CPT/HCPCS: 70486

== ENCOUNTER 2024-10-02 09:44 | Outpatient (CLI) | payer OTHER, SELFPAY ==
--- NOTE | ~2024-10-02 | MR_ITS ---
MRI of the left knee Clinical history: Pain Technique: Coronal proton density and proton density-weighted images, sagittal proton-density and T2 fat-sat images, and axial proton-density fat-saturated images were acquired. Findings: Anterior and posterior cruciate ligaments are intact. Medial collateral ligament and the la teral collateral ligament complex are intact. Popliteus tendon is intact. Medial and lateral menisci are intact, without evidence of tear. There is mild chondromalacia patella. Remaining articular cartilage is well preserved. Bone marrow si gnals are intact. Extensor mechanism is intact. No significant joint effusion or Xie's cyst. Impression: Mild chondromalacia patella. Reviewed, dictated and finalized at location . E DIMENSIONAL ART INSTRUCTOR Impression: Mild chondromalacia patella.
== END 2024-10-02 09:45 | disposition home or self-care (01) ==
LOC: GOSHIMG 09:45
PROVIDERS: PCP Internal Medicine; Visit Provider Internal Medicine
DX: M25.562 Pain in left knee (principal)
CPT/HCPCS: 73721

== ENCOUNTER 2025-03-28 00:53 | Day surgery (SDC) | payer OTHER, SELFPAY ==
[2025-03-20 15:46] VITALS: BMI 36.6
--- OUTSIDE RECORDS SUMMARY | 2025-03-28 00:55 | XMS_ITS | Encounter Summary ---
Author Organization [facility] Address [address] [place] [address] Care Team Providers Care Dairy Cattle Farmer Name Role Phone Panda Castro MD Primary Care Provider [phone] Panda Castro MD Primary Care Provider [phone] Panda Castro MD Primary Care Provider [phone] Encounter Details Date Type Department Care Team (Late st Contact Info) Description 11/07/2016 Orders Only [facility] ProviderAshlee MD [address] [place] [address] Social History Tobacco Use Types Packs/Day Years Used Date Smoking Tobacco: Never Assessed Sex and Gender Information Value Date Recorded Sex Assigned at Not on file 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 Historical Provider [facility] Final Result documented in this encounter Visit Diagnoses Not on filedocumented in this encounter Care Teams Dairy Cattle Farmer Relationship Specialty Start Date End Date Panda Castro MD [address] [place] [address] PCP - General 01/20/17 Panda Castro MD [address] [place] [address] PCP - General 11/24/16 01/19/17 Panda Castro MD [address] [facility] [address] [place] [address] PCP - General 11/07/16 11/23/16 documented as of this encounter
--- OUTSIDE RECORDS SUMMARY | 2025-03-28 00:55 | XMS_ITS | Encounter Summary ---
Author Organization [facility] Address [address] [place] [address] Care Team Providers Care Refrigeration Engineering Teacher Name Role Phone Panda Castro MD Primary Care Provider [phone] Panda Castro MD Primary Care Provider [phone] Panda Castro MD Primary Care Provider [phone] Encounter Details Date Type Department Care Team (Late st Contact Info) Description 10/29/2016 Orders Only [facility] ProviderAshlee MD [address] [place] [address] Social History Tobacco Use Types Packs/Day Years Used Date Smoking Tobacco: Never Assessed Sex and Gender Information Value Date Recorded Sex Assigned at Not on file 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 Historical Provider [facility] Final Result documented in this encounter Visit Diagnoses Not on filedocumented in this encounter Care Teams Refrigeration Engineering Teacher Relationship Specialty Start Date End Date Panda Castro MD [address] [place] [address] PCP - General 01/20/17 Panda Castro MD [address] [place] [address] PCP - General 11/24/16 01/19/17 Panda Castro MD [address] [facility] [address] [place] [address] PCP - General 11/07/16 11/23/16 documented as of this encounter
--- OUTSIDE RECORDS SUMMARY | 2025-03-28 00:55 | XMS_ITS | Clinical Summary ---
Author Organization [facility] Address [address] [place] [address] Care Team Providers Care Alterations Supervisor Name Role Phone Panda Castro MD Primary Care Provider [phone] Source Comments [facility],non-owned Affiliates and Associated Physician Practices is amultiple site organization consisting of ambulatory clinics and hospital sitesin [place], [place], [place] and [place]. This disclosure is being madepursuant to the Care Everywhere program and may not contain all information available regarding this patient. Last updated 18.[facility] Allergies No known active allergies Medications * Be aware that medications may not be up to date on this document. Alwaysverify current medications with the patient. Rosuvastatin Calcium (CRESTOR PO) Active montelukast (SINGULAIR) 10 MG tablet Take 10 mg by mouth at bedtime Active Cholecalciferol (VITAMIN D3) 93190 UNITS capsule Take 50,000 Units by mouth every 7 days Active Aspirin (ASPIR-81 PO) Active Social History Tobacco Use Types Packs/Day Years Used Date Smoking Tobacco: Never Sex and Gender Information Value Date Recorded Sex Assigned at Not on file Legal Sex Male 7:33 AM LEAD MILITARY ANALYST Gender Identity Not on file Sexual Orientation Not on file Last Filed Vital Signs Vital Sign Reading Time Taken Comments Blood Pressure 116/78 12/08/2016 4:27 PM LEAD MILITARY ANALYST Pulse 76 12/08/2016 4:05 PM LEAD MILITARY ANALYST Temperature 36.9 C (98.5 F) 12/08/2016 4:05 PM LEAD MILITARY ANALYST Respiratory Rate 16 12/08/2016 4:05 PM LEAD MILITARY ANALYST Oxygen Saturation 94% 12/08/2016 4:05 PM LEAD MILITARY ANALYST Inhaled Oxygen Concentration - - Weight 123.4 kg (272 lb) 12/08/2016 4:05 PM LEAD MILITARY ANALYST Height 180.3 cm (5' 11) 12/08/2016 4:05 PM LEAD MILITARY ANALYST Body Mass Index 37.94 12/08/2016 4:05 PM LEAD MILITARY ANALYST Plan of Treatment Health Maintenance Due Date Last Done Comments COLOGUARD (AGES 45-75) - COL ON CA SCREENING 1968 COLON MONITORING 1968 COLONOSCOPY - COLON CA SCREENING 1968 CT COLONOGRAPHY - COLON CA SCREENING 1968 Colorectal Cancer Screening 1968 FIT - COLON CA SCREENING 1968 FLEX SIG - COLON CA SCREENING 1968 HIV SCREENING 1983 HEPATITIS C SCREENING 11/27/1986 DTAP/TDAP/TD VACCINES (1 - Tdap) 1987 HEPATITIS B VACCINE (1 of 3 - 19+ 3-dose series) 1987 PNEUMOCOCCAL VACCINE 50+ (1 of 1 - PCV) 2018 ZOSTER VACCINE (1 of 2) 2018 COVID-19 VACCINE ( - 2023-2 5 season) 2024 DEPRESSION SCREENING 10/23/2024 INFLUENZA VACCINE (Season Ended) 2025 HIB VACCINE Aged Out No longer eligi ble based on patient's age to complete this topic HPV VACCINE Aged Out No longer eligi ble based on patient's age to complete this topic MENINGOCOCCAL (Group B) VACC INE SHARED DECISION-MAKING Aged Out No longer eligibl e based on patient's age to complete this topic MENINGOCOCCAL GROUPS A/C/Y/W VACCINE Aged Out No longer eligible b ased on patient's age to complete this topic Insurance [place] [address] CARE Member Subscriber Plan / Payer (Ef fective 2020-Present) Name:Umesh Acevedo Relation to Subscriber:Self Name:SANGEETAJOSE Aviles Payer ID:[id number] (NAIC) Type:O Address: [address] [facility] Member Subscriber Plan / Payer (Ef fective 2016-Present) Name:Umesh Acevedo Relation to Subscriber:Spouse Name:JOSE ACEVEDO Date of :1967 (Home) Address: [address] [place] [address] Payer ID:[id number] (NA) Type:O Address: [place] [id number] Care Teams Alterations Supervisor Relationship Specialty Start Date End Date Panda Castro MD [address] [place] [address] PCP - General Internal Medicine 12/08/16
--- OUTSIDE RECORDS SUMMARY | 2025-03-28 00:55 | XMS_ITS | Referral Summary ---
Author Organization [facility] [address] Address [address] [place] [address] Care Team Providers Care Nuisance Animal Damage Control Agent Name Role Phone Panda Castro MD Primary Care Provider [phone] Allergies No known active allergies Medications aspirin 81 mg tablet Take 1 tablet (81 mg total) by mouth daily Active Synjardy XR 10-1,000 mg tablet, IR & ER, biphasic 24hr 07/02/2021 Activ e Ozempic 0.25 mg or 0.5 mg(2 mg/1.5 mL) pen injector injection INJECT 0.5 MG UNDER THE SKIN WEEKLY 08/05/2021 Active rosuvastatin (CRESTOR) 20 mg tablet 06/07/2021 Active omega-3 fatty acids 1,000 mg capsule Take 4 Caplet by mouth Active buPROPion XL (WELLBUTRIN XL) 150 mg 24 hr tablet 08/22/2022 Active Joaquina-D 12 Hour 60-120 mg per 12 hr tablet Take 1 tablet by mouth 2 (two) times a day 08/15/2022 Active Active Problems Problem Noted Date Diagnosed Date Diabetes mellitus type II, non insulin dependent 08/11/2021 Obstructive sleep apnea 04/21/2017 Obesity with body mass index 30 or greater 11/24 Overview (01/28/2017): Obesity (BMI 35.0-39.9 without comorbidity) Family history of cardiac disorder 11/24/2016 Overview (01/28/2017): Family history of heart disease Atypical chest pain 11/24/2016 Overview (01/28/2017): Atypical chest pain Palpitations 11/24/2016 Overview (01/28/2017): Palpitations Hypertension associated with diabetes 11/24/2016 Overview (01/28/2017): Essential hypertension Hyperlipidemia associated with type 2 diabetes m ellitus 11/24/2016 Overview (01/28/2017): Hyperlipidemia LDL goal <100 Social History Tobacco Use Types Packs/Day Years Used Date Smoking Tobacco: Never Smokeless Tobacco: Never Tobacco Cessation:Counseling Given: Not Answered Alcohol Use Standard Drinks/Week Comments Yes 1 (1 standard drink = 0.6 oz pur e alcohol) occassionally Sex and Gender Information Value Date Recorded Sex Assigned at Not on file Legal Sex Male 4:21 AM SEAFOOD MANAGER Gender Identity Not on file Sexual Orientation Not on file Last Filed Vital Signs Vital Sign Reading Time Taken Comments Blood Pressure 144/80 08/30/2024 8:06 AM SEAFOOD MANAGER Pulse 71 08/30/2024 8:06 AM SEAFOOD MANAGER Temperature - - Respiratory Rate 16 04/21/2017 3:17 PM CDT Oxygen Saturation 94% 08/30/2024 8:06 AM SEAFOOD MANAGER Inhaled Oxygen Concentration - - Weight 127 kg (280 lb) 08/30/2024 8:06 AM SEAFOOD MANAGER Height 180.3 cm (5' 11) 08/30/2024 8:06 AM SEAFOOD MANAGER Body Mass Index 39.05 08/30/2024 8:06 AM SEAFOOD MANAGER Plan of Treatment Not on file Procedures Procedure Name Priority Date/Time Associated Diagnosis Comments POCT LIPID PANEL Routine 08/30/2024 8:07 AM SEAFOOD MANAGER Hyperlipidemia associated with type 2 diabetes mellitus (HCC) from Last 3 Months or Most Recently Relevant to Health Maintenance Results * POCT lipid panel (08/30/2024 8:07 AM SEAFOOD MANAGER) Cholesterol, POC 176 mg/dL HDL, POC 37 mg/dL Triglycerides, POC 148 mg/dL LDL Cholesterol POC 110 mg/dL Chol/HDL Ratio, POC 3.0 Non-HDL Cholesterol, POC 140 mg/dL Cholesterol Total, POC 176 mg/dL Capillary blood 08/30/2024 8 :07 AM SEAFOOD MANAGER Neo Monahan MD POINT OF CARE TEST ORDERA BLES Final Result from Last 3 Months or Most Recently Relevant to Health Maintenance Insurance [facility] Care Teams Nuisance Animal Damage Control Agent Relationship Specialty Start Date End Date Panda Castro MD [address] [place] [address] PCP - General 01/20/17
--- OUTSIDE RECORDS SUMMARY | 2025-03-28 00:55 | XMS_ITS | Clinical Summary ---
Author Organization [facility] [address] Address [address] [place] [address] Care Team Providers Care Rehabilitation Assistant Name Role Phone Panda Castro MD Primary Care Provider [phone] Allergies No known active allergies Medications aspirin [...] Hyperlipidemia associated with type 2 diabetes m sam 11/24/2016 Overview (01/28/2017): Hyperlipidemia LDL goal <100 Medical History Medical History Date Comments Hypercholesterolemia High choles terol Hx Other Medical Allergies, seas onal Hx Other Medical hypertension, o besity; Comments: MAF 11/24/2016 - Family History Medical History Relation Name Comments Heart failure Father Congestive hea rt failure; Hyperlipidemia Father Hyperlipidemi a; Hypertension Father Hypertension; Other Father Alive and well; Other Mother Immune Deficien cies; Cause of : Immune Deficiencies Relation Name Status Comments Father Alive Mother Social History Tobacco Use Types Packs/Day Years Used Date Smoking Tobacco: Never Smokeless Tobacco: Never Tobacco Cessation:Counseling Given: Not Answered Alcohol Use Standard Drinks/Week Comments Yes 1 (1 standard drink = 0.6 oz pur e alcohol) occassionally Sex and Gender Information Value Date Recorded Sex Assigned at Not on file Legal Sex Male 4:21 AM EQUIPMENT TESTER Gender Identity Not on file Sexual Orientation Not on file Obstetrics History Last Filed Vital Signs Vital Sign Reading Time Taken Comments Blood Pressure 144/80 08/30/2024 8:06 AM EQUIPMENT TESTER Pulse 71 08/30/2024 8:06 AM EQUIPMENT TESTER Temperature - - Respiratory Rate 16 04/21/2017 3:17 PM CDT Oxygen Saturation 94% 08/30/2024 8:06 AM EQUIPMENT TESTER Inhaled Oxygen Concentration - - Weight 127 kg (280 lb) 08/30/2024 8:06 AM EQUIPMENT TESTER Height 180.3 cm (5' 11) 08/30/2024 8:06 AM EQUIPMENT TESTER Body Mass Index 39.05 08/30/2024 8:06 AM EQUIPMENT TESTER Plan of Treatment Health Maintenance Due Date Last Done Comments Albumin Creatinine Ratio, Urine 1968 Colon Cancer Screening-Colonoscopy 1968 Depression Screening 1968 Hemoglobin A1C 1968 Hepatitis C Screening 1968 Prostate Cancer Screening-PSA 1968 eGFR 1968 Dilated Eye Exam 1968 Foot Exam 1968 DTaP/Tdap/Td Vaccine (1 - Tdap) 1979 Regular Well Visit/Exam 18-64 1986 Pneumococcal vaccine <65 (1 of 2 - PCV) 1987 Zoster Vaccine (1 of 2) 2018 Influenza Vaccine (Season Ended) 2025 10/02/2019, 07/27/2018, 07/29/2017, Additional history exists Lipid Panel 08/30/2025 08/30/2024, 03/23, 05/27/2022, Additional history exists Hepatitis B Screening Completed 10/11/2019 Procedures Procedure Name Priority Date/Time Associated Diagnosis Comments POCT LIPID PANEL Routine 08/30/2024 8:07 AM EQUIPMENT TESTER Hyperlipidemia associated with type 2 diabetes mellitus (HCC) from Last 3 Months or Most Recently Relevant to Health Maintenance Results * POCT lipid panel (08/30/2024 8:07 AM EQUIPMENT TESTER) Cholesterol, POC 176 mg/dL HDL, POC 37 mg/dL Triglycerides, POC 148 mg/dL LDL Cholesterol POC 110 mg/dL Chol/HDL Ratio, POC 3.0 Non-HDL Cholesterol, POC 140 mg/dL Cholesterol Total, POC 176 mg/dL Capillary blood 08/30/2024 8 :07 AM EQUIPMENT TESTER Neo Monahan MD POINT OF CARE TEST ORDERA BLES Final Result from Last 3 Months or Most Recently Relevant to Health Maintenance Insurance [facility] [place] [address] Care Teams Rehabilitation Assistant Relationship Specialty Start Date End Date Panda Castro MD [address] [facility] [address] [place] [address] PCP - General 01/20/17
--- OUTSIDE RECORDS SUMMARY | 2025-03-28 00:55 | XMS_ITS | Encounter Summary ---
Author Organization [facility] Address [address] [place] [address] Care Team Providers Care Coroner Forensic Technician Name Role Phone Panda Castro MD Primary Care Provider [phone] Panda Castro MD Primary Care Provider [phone] Panda Castro MD Primary Care Provider [phone] Encounter Details Date Type Department Care Team (Late st Contact Info) Description 11/08/2016 Orders Only [facility] ProviderAshlee MD [address] [place] [address] Social History Tobacco Use Types Packs/Day Years Used Date Smoking Tobacco: Never Assessed Sex and Gender Information Value Date Recorded Sex Assigned at Not on file Legal Sex Male 4:21 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 Historical Provider [facility] Final Result documented in this encounter Visit Diagnoses Not on filedocumented in this encounter Care Teams Coroner Forensic Technician Relationship Specialty Start Date End Date Panda Castro MD [address] [place] [address] PCP - General 01/20/17 Panda Castro MD [address] [place] [address] PCP - General 11/24/16 01/19/17 Panda Castro MD [address] [facility] [address] [place] [address] PCP - General 11/07/16 11/23/16 documented as of this encounter
[2025-03-28 07:45] VITALS: BP 142/74; PULSE 83; RESP 18; TEMP 36.1; O2SAT 99
[2025-03-28] MEDS: LACTATED RINGERS 1,000 ML 150 ML IV CONT (08:01)
--- NOTE | 2025-03-28 08:18 | WPDANESEPPF ---
Anes - Initial Pre Proc Eval Procedure: Operation Date: 03/28/25 09:00 Proposed Procedures p Colonoscopy - Adriel Rubin MD Date/Time: 03/28/25 08:18 Surgeon: Adriel Rubin MD Pre Op Diagnosis: hx of colon polyps Patient Data Age: 54 Gender: M Height: 1.78 m Weight: 115.9 kg Last Vital Signs Temp 36.1 C L 03/28/25 07:45 Pulse 83 03/28/25 07:45 Resp 18 03/28/25 07:45 BP 142/74 H 03/28/25 07:45 Pulse Ox 99 03/28/25 07:45 O2 Del Method Room Air 03/28/25 07:45 Allergies Allergy/AdvReac Type Severity Reaction Status Date / Time niacin AdvReac Intermediate Itching Verified 03/28/25 07:41 Home Medications ?Medication ?Instructions ?Recorded ?Confirmed ?Type omega-3 fatty acids 1,000 mg 4,000 mg PO BID 11/08/19 03/28/25 History capsule (Fish Oil Concentrate) cetirizine 10 mg tablet (Zyrtec) 10 mg PO DAILY 07/16/20 03/28/25 History aspirin 81 mg tablet,delayed See Rx Instructions .Route 07/28/22 03/28/25 Rx release .COMPLEX #90 tabs mupirocin 2 % topical ointment 1 applic topical .COMPLEX PRN 11/22/24 03/20/25 Rx nasal lesion #22 grams cyclobenzaprine 10 mg tablet 10 mg PO TID PRN muscle spasm #30 11/28/24 03/20/25 Rx tabs bupropion HCl 150 mg 24 hr tablet, See Rx Instructions .Route 12/17/24 03/28/25 Rx extended release .COMPLEX #90 tabs tirzepatide 12.5 mg/0.5 mL 12.5 mg (0.5 mL) subcut WEEKLY #2 03/16/25 03/28/25 Rx subcutaneous pen injector mL (Mounjaro) empagliflozin 10 mg-metformin ER See Rx Instructions .Route 03/19/25 03/28/25 Rx 1,000 mg tablet,extended release .COMPLEX #90 tabs 24hr (Synjardy XR) rosuvastatin 40 mg tablet 40 mg PO DAILY #90 tabs 03/20/25 03/28/25 Rx Patient hx anesthesia problems: none Family hx anesthesia problems: none Results Review: All pre-operative results and documents have been reviewed as part of the pre-operative evaluation. [facility]LY [facility] Past Medical History Medical History BMI 37.0-37.9, adult Migraine Staph infection Atypical chest pain Persistent headaches Worsening headaches Encounter for routine adult health examination with abnormal findings Cough BPPV (benign paroxysmal positional vertigo) Left arm weakness BMI 39.0-39.9,adult Personal history of COVID-19 Abnormal prominence of rib Abdominal fullness History of 2019 novel coronavirus disease (COVID-19) Follow up Anxiety with depression DM type 2 (diabetes mellitus, type 2) Back pain BMI 38.0-38.9,adult Acute blood loss anemia Benign essential hypertension Encounter for special screening examination for neoplasm of prostate Adverse reaction to niacin Body mass index (BMI) 40.0-44.9, adult LARRY on CPAP Encounter for routine adult health examination without abnormal findings On group home drug therapy Vitamin D deficiency Pre-diabetes Hyperlipidemia Surgical History Surgical History History of colonoscopy Family History Family History Father Hypertension Father Colon polyp Father Acute myocardial infarction Mother Diabetes mellitus Hypertension Depression Anxiety Social History Social History Social History: Mr. Kulkarni lives at home with his . He has two daughters. 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 He reports infrequent social alcohol use and denies tobacco and illicit substance use. He wishes to be a full code and he has designated his , Ashely Kulkarni, as his surrogate decision maker. Smoking status: Never smoker Second hand tobacco smoke exposure: No Alcohol intake: current Drinks per week: 1 Alcohol use details: socially, 12 drinks per year Substance use: never Substance use type: does not use Lack of Transportation: No Lack of Food: Never True Current Housing: I Have Housing Concerned About Future Housing: No Difficulty Paying Gas/Electric Bills: No Difficulty Paying for Meds: No Currently Unemployed: No Education: Bachelor's Degree Difficulty w/ Childcare or Family Care: No Living arrangements: with family Occupation/Education: occupation Gender identity (if verbalized by the patient): Male Sexual Orientation (if Verbalized by the Patient): Straight or Heterosexual Spiritual care concerns: No Anes - Eval Final PreProcedure Day of Procedure 03/28/25 08:18 Patient weight: obese Heart: regular rate and rhythm Lungs: clear to auscultation Airway: Mallampati scale class 1 Neurological: alert and oriented Last oral intake: >/= 8 hours ASA classification: III Emergent: no Anesthetic plan: proceed Anesthesia type and monitoring: general GIVS and standard monitoring Results Review: All pre-operative results and documents have been reviewed as part of the pre-operative evaluation. Informed Consent: The patient's anesthetic plan and its attendant risks and benefits were discussed with the patient/family/POA. Questions were solicited and answers provided to the satisfaction of the patient/family/POA.
--- NOTE | 2025-03-28 08:52 | P.HP_ITS ---
H&P: HPI History of Present Illness Date/Time: 03/28/25 08:52 Chief Complaint: History of colon polyps Narrative: The patient has a history of colonic polyps, the last colonoscopy was in 2019. A 1.8 pedunculated polyp was excised from the sigmoid. The patient had post polypectomy bleeding 3 day later, and underwent a 2nd colonoscopy for hemostasis. Review of Systems Review of Systems: All systems reviewed & are unremarkable except as noted in HPI and below PMFSH Past Medical History Medical History BMI 37.0-37.9, adult Migraine Staph infection Atypical chest pain Persistent headaches Worsening headaches Encounter for routine adult health examination with abnormal findings Cough BPPV (benign paroxysmal positional vertigo) Left arm weakness BMI 39.0-39.9,adult Personal history of COVID-19 Abnormal prominence of rib Abdominal fullness History of 2019 novel coronavirus disease (COVID-19) Follow up Anxiety with depression DM type 2 (diabetes mellitus, type 2) Back pain BMI 38.0-38.9,adult Acute blood loss anemia Benign essential hypertension Encounter for special screening examination for neoplasm of prostate Adverse reaction to niacin Body mass index (BMI) 40.0-44.9, adult LARRY on CPAP Encounter for routine adult health examination without abnormal findings 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 Kulkarni lives at home with his . He has two daughters. He is employed in the [employer] Department for [employer]. He reports infrequent social alcohol use and denies tobacco and illicit substance use. He wishes to be a full code and he has designated his , Ashely Kulkarni, as his surrogate decision maker. Smoking status: Never smoker Second hand tobacco smoke exposure: No Alcohol intake: current Drinks per week: 1 Alcohol use details: socially, 12 drinks per year Substance use: never Substance use type: does not use Lack of Transportation: No Lack of Food: Never True Current Housing: I Have Housing Concerned About Future Housing: No Difficulty Paying Gas/Electric Bills: No Difficulty Paying for Meds: No Currently Unemployed: No Education: Bachelor's Degree Difficulty w/ Childcare or Family Care: No Living arrangements: with family Occupation/Education: occupation Gender identity (if verbalized by the patient): Male Sexual Orientation (if Verbalized by the Patient): Straight or Heterosexual Spiritual care concerns: No Meds Home Medications and Allergies Home Medications ?Medication ?Instructions ?Recorded ?Confirmed ?Type omega-3 fatty acids 1,000 mg 4,000 mg PO BID 11/08/19 03/28/25 History capsule (Fish Oil Concentrate) cetirizine 10 mg tablet (Zyrtec) 10 mg PO DAILY 07/16/20 03/28/25 History aspirin 81 mg tablet,delayed See Rx Instructions .Route 07/28/22 03/28/25 Rx release .COMPLEX #90 tabs mupirocin 2 % topical ointment 1 applic topical .COMPLEX PRN 11/22/24 03/20/25 Rx nasal lesion #22 grams cyclobenzaprine 10 mg tablet 10 mg PO TID PRN muscle spasm #30 11/28/24 03/20/25 Rx tabs bupropion HCl 150 mg 24 hr tablet, See Rx Instructions .Route 12/17/24 03/28/25 Rx extended release .COMPLEX #90 tabs tirzepatide 12.5 mg/0.5 mL 12.5 mg (0.5 mL) subcut WEEKLY #2 03/16/25 03/28/25 Rx subcutaneous pen injector mL (Mounjaro) empagliflozin 10 mg-metformin ER See Rx Instructions .Route 03/19/25 03/28/25 Rx 1,000 mg tablet,extended release .COMPLEX #90 tabs 24hr (Synjardy XR) rosuvastatin 40 mg tablet 40 mg PO DAILY #90 tabs 03/20/25 03/28/25 Rx Allergies Allergy/AdvReac Type Severity Reaction Status Date / Time niacin AdvReac Intermediate Itching Verified 03/28/25 07:41 Vital Signs Vital Signs - 24 hr 03/28/25 07:45 Temperature 97 F L Pulse Rate 83 Respiratory Rate 18 Blood Pressure 142/74 H Pulse Oximetry 99 Oxygen Delivery Room Air Exam Const: General: cooperative and healthy appearing Resp: Effort & Inspection: normal respiratory effort and able to speak in complete sentences Auscultation: clear to auscultation bilaterally Cardio: Rate: regular rate Rhythm: regular rhythm GI: Inspection: normal to inspection GI Palp: No No hepatosplenomegaly present Auscultation: normal bowel sounds Rectal Exam: deferred Skin: General skin exam: normal color Psych: Appearance: grossly normal Mental Status: mental status grossly normal Assessment and Plan Assessment and plan (1) History of colon polyps: Code(s): Z86.010 - Personal history of colon polyps Status: Acute Assessment and Plan: The patient is deemed a good candidate for the procedure. Consent signed. Will proceed.
--- NOTE | 2025-03-28 09:16 | S_PTH ---
PATIENT: Umesh Kulkarni LOC: [facility] U#:[id number] AGE/SX: 54/M ROOM: RE03/28/[address]: Adriel Rubin MD : [id number] BED: DIS: 03/28/2025 SPEC #: [id number] RECD: 03/28/25 11:24 STATUS: PAULA LEÓN #: [id number] ZARA: 03/28/25 09:[address]: Adriel Rubin DEPT: [facility] Surgical RECD BY: Josephine Mitchell ENTERED: 03/28/25 11:25 SP TYPE: Surgical OTHR DR: Panda Castro MD Tissues: A - Colon Polypectomy B - Colon Polypectomy Procedures: Hematoxylin and Eosin Stain Gross and Microscopic Level 4
[2025-03-28 09:22] VITALS: BP 95/59; PULSE 74; RESP 20; O2SAT 99
[2025-03-28 09:32] VITALS: BP 103/56; PULSE 66; RESP 20; O2SAT 100
[2025-03-28 09:42] VITALS: BP 122/68; PULSE 68; RESP 19; O2SAT 100
== END 2025-03-28 09:57 | disposition home or self-care (01) ==
PROVIDERS: PCP Internal Medicine; Referring Provider Internal Medicine; Visit Provider Internal Medicine Gastroenterology
PROC: 0DJD8ZZ Inspection of Lower Intestinal Tract, Via Natural or Artificial Opening Endoscopic (ICD-10-PCS; CPT 45378; principal; 2025-03-28 09:00)
DX: Z12.11 Encounter for screening for malignant neoplasm of colon (principal); D12.3 Benign neoplasm of transverse colon; D12.5 Benign neoplasm of sigmoid colon; K57.30 Diverticulosis of large intestine without perforation or abscess without bleeding; E66.9 Obesity, unspecified; Z68.36 Body mass index [BMI] 36.0-36.9, adult
CPT/HCPCS: 45385; 88305; J2003; J2704; J7120